=== PATIENT | male | born 1950 | race Two or more races ===

== ENCOUNTER 2023-10-26 06:19 | Day surgery (SDC) | payer MEDICARE, SELFPAY ==
[2023-10-24 07:45] VITALS: BMI 26.3
[2023-10-24 08:49] LABS: Hematocrit 33.1 % (39.0-52.0); Hemoglobin 11.7 g/dL (13.0-18.0); Mean Corp Hgb Conc. 35.3 g/dL (33.0-37.0); Mean Corpuscular Hgb 34.2 pg (27.0-31.0); Mean Corpuscular Volume 96.8 fL (80.0-94.0); Mean Platelet Volume 8.8 fL (7.4-10.4); Platelet Count 438 10^3/uL (130-400); Red Blood Cell Count 3.42 10^6/uL (4.70-6.10); Red Cell Dist. Width 12.4 % (11.5-14.5); White Blood Cell Count 9.4 10^3/uL (4.8-10.8)
[2023-10-24 09:21] LABS: ALT (SGPT) 60 U/L (0-50); AST (SGOT) 54 U/L (17-59); Albumin 3.5 g/dl (3.5-5.0); Alkaline Phosphatase 69 U/L (38-126); Blood Urea Nitrogen 10 mg/dl (9-20); Calcium 9.5 mg/dl (8.4-10.2); Carbon Dioxide 33 mmol/L (22-30); Chloride 98 mmol/L (98-107); Estimated Creatinine Clearance 87 ml/min; Glucose 100 mg/dl (70-99); Potassium 4.8 mmol/L (3.5-5.1); Sodium 138 mmol/L (135-145); Total Bilirubin 1.3 mg/dl (0.2-1.3); eGFR > 60.00
[2023-10-24 13:02] LABS: Glycohemoglobin (HgbA1c) 5.9 % (4.0-5.6)
[2023-10-26] VITALS (11 sets, daily range): BP systolic 127–143; BP diastolic 64–93; BMI 26.3
[2023-10-26] MEDS: CELEBREX 200 MG PO (09:05)
[2023-10-26] MEDS: TYLENOL 1000 MG PO (09:05)
[2023-10-26] MEDS: ANCEF 5 IV (14:31)
== END 2023-10-26 15:30 | disposition home or self-care (01) ==
LOC: SDS 06:19
PROVIDERS: ATTENDING PHYSICIAN Specialist; FAMILY PHYSICIAN Family Medicine
DX: S42.291A Other displaced fracture of upper end of right humerus, initial encounter for closed fracture (principal); W18.39XA Other fall on same level, initial encounter; Y93.23 Activity, snow (alpine) (downhill) skiing, snowboarding, sledding, tobogganing and snow tubing; Y92.89 Other specified places as the place of occurrence of the external cause; V00.321A Fall from snow-skis, initial encounter
CPT/HCPCS: 23472; 36415; 73020; 80053; 83036; 85027; 86850; 86900; 86901; 87070; C1713; C1776

== ENCOUNTER 2023-10-27 07:47 | Emergency (ER) | payer MEDICARE, SELFPAY ==
[2023-10-27 07:53] VITALS: BP 156/78
--- NOTE | 2023-10-27 08:11 | ED.GENMED ---
History of Present Illness
General
Chief Complaint: Urinary Symptoms
Source: patient and family (Son)
Exam Limitations: none
Time Seen by Provider: 10/27/23 07:57
Nursing documentation reviewed up to this point in time: agreed with
Travel History
Have you had any contact with someone who has COVID-19?: No
Do you have any symptoms of coronavirus? Fever > 100 degrees, chills, cough, shortness of breath, sore throat, loss of taste or smell, muscle aches, or headache?: No
History of Present Illness
History of Present Illness:
72-year-old male with history as documented presents to the emergency room for evaluation of urinary retention and constipation. Patient had shoulder replacement with Dr. Crowell yesterday, was discharged around 3 PM he says. He says that he was able
to urinate throughout the evening twice yesterday without issue. He says that at night he noticed that he was only dribbling urine and he woke up around 2 AM with pressure in his bladder and was unable to urinate. He says he was initially going to
come to the emergency room at that point but when he went outside the cold air made him feel the urge to urinate and he was able to pass urine. Unfortunately has not been able to urinate again since then and is having increasing pressure in his
bladder once again. He also reports that he has been constipated�says he has been on Percocet for the past week which has constipated him. He has been taking MiraLAX but still has not had a bowel movement in about 4 days. He has not had any
fevers or chills. He denies any nausea, vomiting. He denies any other complaints.
Review of Systems
Review of Systems
All Other Systems: ROS reviewed and negative except as documented in HPI and ROS
Constitutional: Denies fever or chills
Respiratory: Denies trouble breathing
Cardiac: Denies chest pain
ABD/GI: Reports abdominal pain (Suprapubic pressure) and constipated; Denies nausea or vomiting
: Reports difficulty voiding; Denies dysuria, frequency or flank pain
Musculoskeletal: Denies neck pain or back pain
Neurological: Denies headache
Phy Exam
Physical Exam
Physical Exam:
General: Awake, alert, oriented x3; no acute distress
Head: Normocephalic, atraumatic
Eyes: Conjunctiva normal, sclera anicteric
Throat: Airway intact, handling secretions
Neck: Trachea midline
Lungs: Breathing comfortably no distress
Heart: Regular rate
Abd: Soft, non distended, fullness in the suprapubic region with tenderness in this area
Neuro: No gross deficits
Skin: no rash
Extremities: Warm well-perfused
Scores
Heart Failure Risk
Heart Failure Risk Score: Not Applicable
Heart Score for Chest Pain Patients
STEMI patient?: Not applicable
Withdrawal Assessment of Alcohol
Withdrawal Assessment Completed?: Not applicable
Course
Orders/Labs/Results
Orders:
Orders
10/27/23 07:58
Bladder Scan- Treatment ONCE
CR Abdomen - 1 View Urgent
Comment:
Reason For Exam: constipation
10/27/23 09:09
Enema- Treatment ONCE
Type: Soap Suds
Vital Signs
Initial and Last Documented VS:
Initial Vital Signs
Temp Pulse Resp BP Pulse Ox
37.5 C 80 16 156/78 98
10/27/23 07:53 10/27/23 07:53 10/27/23 07:53 10/27/23 07:53 10/27/23 07:53
Last Documented Vital Signs
Temp Pulse Resp BP Pulse Ox
37.5 C 80 16 156/78 98
10/27/23 07:53 10/27/23 07:53 10/27/23 07:53 10/27/23 07:53 10/27/23 07:53
MDM/Problems Addressed
Differential Diagnosis Includes:
Acute urinary tension secondary to anesthesia, urinary retention related to BPH, urinary retention related to constipation
MDM/Problems Addressed:
72-year-old male presents for evaluation of urinary retention after recent surgery; also constipated for the past 4 days. Hypertensive but otherwise normal vitals. Exam as above. Bladder scan did show some urinary retention. Suspect this may be
multifactorial likely exacerbated by constipation with known BPH contributing. Will check an x-ray of the abdomen to evaluate for any signs of obstruction although low suspicion clinically. Will perform straight catheterization and plan for more
aggressive bowel regimen which I suspect will also improve urinary retention. Monitor closely reassess after the above.
Patient feeling much better after straight catheterization of urine. Abdominal x-ray does show significant constipation. No fecal impaction on rectal exam although he does have enlarged prostate. Suspect constipation combined with prostate
enlargement contributing to retention today. Patient given an enema with good response. Will start on Flomax. Will add Colace to his bowel regiment which I suspect will help improve his urinary retention as well. He feels comfortable with this
plan. He already follows with urologist. Spoke about return precautions all questions answered.
Acute Exacerbation and/or Progression of Chronic Illness:
Acutely hypertensive
Acute Exacerbation and/or Progression of Chronic Illness: HTN
*Radiology
Radiology exam reviewed: preliminary read by ED provider and radiology read reviewed
*Pulse Oximetry
Patient hypoxic: no
*Critical Care Note
Total Time (30-74mins, 75-104mins- exclusive of procedures): Not Applicable
Data Reviewed
Source: patient and family (Son)
ED Attending Note
-
Portions of this chart may have been created with voice recognition software.� Occasional wrong word or��sound alike� substitutions may have occurred due to the inherent limitations of voice recognition software.
Discharge Plan
Departure
Patient Disposition: Home (Routine Discharge)
Date of Disposition: 10/27/23
Time of Disposition: 10:30
Patient with high blood pressure during this ER visit?: Yes
Discharge Problem:
Acute constipation, Acute urinary retention
Instructions: Constipation, Adult (DC), Urinary Retention (DC)
Prescriptions:
New
tamsulosin [Flomax] 0.4 mg capsule
0.4 mg PO DAILY Qty: 30 0RF
docusate sodium [Colace] 100 mg capsule
100 mg PO BID Qty: 30 0RF
No Action
multivitamin Tablet
1 tab PO DAILY
famotidine 40 mg Tablet
40 mg PO HS
ascorbic acid (vitamin C) [Vitamin C] 500 mg Tablet
500 mg PO DAILY
pantoprazole 40 mg Tablet,Delayed Release (Dr/Ec)
40 mg PO DAILY
saw palmetto 450 mg Capsule
450 mg PO DAILY
omega 9-oco-bdb-fish oil [Fish Oil] 1,200 (144-216) mg Capsule
1 cap PO DAILY
Hold Instructions: Resume on 11/02/23.
mupirocin 2 % Ointment
1 applic TOPICAL BID
oxycodone 5 mg tablet
5 - 10 mg PO Q6H PRN (Reason: moderate-severe pain) Qty: 30 0RF
Rx Instructions:
1 tab for moderate pain, 2 if severe.
Dx total joint.
celecoxib [Celebrex] 200 mg capsule
200 mg PO DAILY Qty: 14 0RF
Rx Instructions:
Take with food.
DO NOT take within 2 hours of Aspirin post-surgery.
dexamethasone 4 mg tablet
4 mg PO BID Qty: 7 0RF
Rx Instructions:
Start night of discharge and take twice a day until finished.
Take with food.
docusate sodium [Colace] 100 mg capsule
100 mg PO BID Qty: 30 0RF
sennosides [senna] 8.6 mg tablet
17.2 mg PO BID Qty: 30 0RF
aspirin 325 mg tablet
325 mg PO DAILY Qty: 30 0RF
Rx Instructions:
Take daily x4 weeks for blood clot prevention.
ondansetron HCl 4 mg tablet
4 mg PO Q6H PRN (Reason: nausea and vomiting) Qty: 30 0RF
Rx Instructions:
Can take 1/2 hour prior to Oxycodone if experiencing recurrent nausea.
acetaminophen 500 mg Tablet
1,000 mg PO Q8H Qty: 0 0RF
Rx Instructions:
DO NOT exceed >3000 mg daily.
Referrals:
Saúl Crowell MD [Active] - Keep scheduled appt
Gomez Mejia MD [Active] - Call in 1-3 days for appt
Chris Chris DO [Family Provider] - Call in 1-3 days for appt
Activity Restrictions/Additional Instructions:
Thank you for visiting the Emergency Department at [facility].
1. Please schedule a follow up appointment as directed. Call first thing tomorrow morning to make an appointment.
2. If indicated, please take your medications as instructed and indicated on discharge paperwork.
3. If any of your symptoms do not improve, or persist, or become more severe within 6-12 hours, please return to the emergency department for further care.
4. Please return to the emergency department if you develop a headache, neck pain/stiffness, fever greater than 100.4F, chest pain, shortness of breath, persistent nausea, vomiting, slurred speech, difficulty walking, numbness/tingling, weakness,
signs of infection or any other symptoms that are worrisome to you.
Please call [phone] if you have any questions.
Interventions
Interventions:
*General Assessment Last Done: 10/27/23 08:45
*Neglect/Abuse Screening Last Done: 10/27/23 08:45
ED- Fall Risk Assessment Last Done: 10/27/23 08:45
*ED COVID-19 Vaccine History Last Done: 10/27/23 07:53
ED-Male Genitourinary Assessment Last Done: 10/27/23 08:45
[2023-10-27 10:56] VITALS: BP 149/79
== END 2023-10-27 11:00 | disposition home or self-care (01) ==
LOC: EMR 07:47
PROVIDERS: EMERGENCY PHYSICIAN Emergency Medicine; FAMILY PHYSICIAN Family Medicine
DX: K59.09 Other constipation (principal); R33.9 Retention of urine, unspecified; R10.9 Unspecified abdominal pain; N40.1 Benign prostatic hyperplasia with lower urinary tract symptoms; G47.30 Sleep apnea, unspecified; K21.9 Gastro-esophageal reflux disease without esophagitis; Z98.890 Other specified postprocedural states; Z96.619 Presence of unspecified artificial shoulder joint; Z87.891 Personal history of nicotine dependence; Z85.46 Personal history of malignant neoplasm of prostate
CPT/HCPCS: 99283; 51798; 51701; 74018

== ENCOUNTER → 2023-12-18 06:20 | Outpatient (REF) | payer MEDICARE, SELFPAY | LOC: EMG 06:20 | PROVIDERS: ATTENDING PHYSICIAN Student in an Organized Health Care Education/Training Program; FAMILY PHYSICIAN Family Medicine | DX: R20.0 Anesthesia of skin (principal); Z96.611 Presence of right artificial shoulder joint; G56.21 Lesion of ulnar nerve, right upper limb | CPT/HCPCS: 95886; 95912 ==

== ENCOUNTER → 2023-12-26 10:52 | Outpatient (REF) | payer MEDICARE, SELFPAY | LOC: RAD 10:52 | PROVIDERS: ATTENDING PHYSICIAN Specialist; FAMILY PHYSICIAN Family Medicine; REFERRING PHYSICIAN Orthopaedic Surgery Hand Surgery | DX: G56.21 Lesion of ulnar nerve, right upper limb (principal); G56.91 Unspecified mononeuropathy of right upper limb | CPT/HCPCS: 76881 ==

== ENCOUNTER → 2024-06-06 10:27 | Outpatient (REF) | payer MEDICARE, SELFPAY | LOC: EMG 10:27 | PROVIDERS: ATTENDING PHYSICIAN Orthopaedic Surgery Hand Surgery; FAMILY PHYSICIAN Family Medicine | DX: R29.898 Other symptoms and signs involving the musculoskeletal system (principal); R20.0 Anesthesia of skin | CPT/HCPCS: 95886; 95909 ==

== ENCOUNTER → 2024-10-10 12:37 | Outpatient (REF) | payer MEDICARE, SELFPAY | LOC: EMG 12:37 | PROVIDERS: ATTENDING PHYSICIAN Student in an Organized Health Care Education/Training Program; FAMILY PHYSICIAN Family Medicine | DX: G56.21 Lesion of ulnar nerve, right upper limb (principal); R20.0 Anesthesia of skin | CPT/HCPCS: 95886; 95909 ==

== ENCOUNTER → 2025-04-16 12:28 | Outpatient (REF) | payer MEDICARE, SELFPAY | LOC: EMG 12:28 | PROVIDERS: ATTENDING PHYSICIAN Student in an Organized Health Care Education/Training Program; FAMILY PHYSICIAN Family Medicine | DX: G56.21 Lesion of ulnar nerve, right upper limb (principal); R20.0 Anesthesia of skin | CPT/HCPCS: 95886; 95909 ==